=== PATIENT | female | born 1950 | race Caucasian/White ===

== ENCOUNTER 2017-05-27 04:29 | Emergency (ER) | payer OTHER, BC ==
[~2017-05-27] VITALS: Ht 154.9 cm; Wt 71.8 kg
[2017-05-27 04:31] VITALS: Ht 154.9 cm; Wt 71.8 kg
[2017-05-27 05:16] VITALS: TEMP 98
--- NOTE | 2017-05-27 06:13 | RADRPT ---
PROCEDURE: CT ABDOMEN/PELVIS WITHOUT CONTRAST CLINICAL INDICATION: 66-year-old female with abdominal pain. TECHNIQUE: The study was performed utilizing a GE [employer] VCT 64-slice CT scanner. Direct axia l sections were obtained through the abdomen and pelvis without the use of intravenous contrast mate rial. Sagittal and coronal reformations were obtained. One or more of the following dose reduction t echniques were utilized: automated exposure control, adjustment of the mA and/or kV according to pat ient's size and/or the use of iterative reconstruction technique. DICOM images are available. The im ages were reviewed on a PACS workstation. CTD/vol = 10.8 mGy; Total Exam DLP = 622.3 mGy-cm. COMPARISON: None. FINDINGS: Cardiomegaly is present. There is a partially visualized calcified granuloma within the lingula mckayla uring 2 x 2 mm. There is a calcified granuloma within the right lung base measuring 3 x 3 mm. There is a calcified subpleural granuloma within the right lung base measuring 2 x 2 mm in axial image 3-2 5. There is a calcified granuloma within the left lung base measuring 3 x 3 mm in axial image 3-39. There is mild scarring within the right middle lobe. There is no evidence for significant pleural ef fusion. The liver has a normal size and contour without focal areas of abnormal density. No intrahe patic nor extrahepatic biliary ductal dilatation is seen. The gallbladder demonstrates no wall thick ening nor pericholecystic fluid. No biliary stones are evident. The pancreas is without areas of abn ormal attenuation. The spleen is identified and has a normal size without abnormal density. The adr enal glands are unremarkable. There is a right mid renal cyst measuring approximately 12 x 13 x 12 mm. The left kidney is without abnormal density, calculi or obstruction. No hydroureteronephrosis no r nephroureterolithiasis is evident. The urinary bladder is distended with urine. There is retained stool predominantly within the ascending and transverse colon without obstruction. Small diverticula seen within the sigmoid colon without surrounding inflammatory changes. The appendix is diminutive and is without abnormal thickening or surrounding inflammatory reaction. The uterus is not visualiz ed consistent with prior hysterectomy. Phleboliths are present within the pelvis. There are small bi lateral inguinal hernias containing fat. The aortoiliac vessels are mildly calcified but without ane urysmal dilatation. Mild degenerative changes are present throughout the spine. IMPRESSION: 1. Retained stool within the proximal colon without obstruction. 2. Sigmoid diverticulosis. 3. Status post hysterectomy. 4. Small bilateral inguinal hernias containing fat. 5. Cardiomegaly. 6. Small bilateral granulomas. 7. Right renal cysts. 8. Vascular calcifications. 9. Degenerative changes within the spine. .Des Fraser MD, MD Date Time Electronically viewed and signed by .Des Fraser MD, MD on 05/27/2017 06:13 .Lelo
[2017-05-27] MEDS ORDERED: ONDANSETRON 4 MG INJ IV STA (06:22)
[2017-05-27] MEDS ORDERED: HYDROmorphONE 1 MG/ML SYG IV STA (06:22)
[2017-05-27 06:28] LABS: ABNORMAL IP MESSAGE 1; BASOPHIL # 0.2 10^3/ul (0.0-0.1); BASOPHILS % 1.7 % (0.0-2.0); EOSINOPHILS # 2.3 10^3/ul (0.0-0.5); EOSINOPHILS % 21.8 % (0.0-7.0); HEMATOCRIT 37.7 % (37.0-47.0); HEMOGLOBIN 12.5 g/dl (12.0-16.0); LYMPHOCYTES # 2.6 10^3/ul (0.8-2.9); LYMPHOCYTES % 24.7 % (15.0-51.0); MEAN CORPUSCULAR HEMOGLOBIN 28.5 pg (29.0-33.0); MEAN CORPUSCULAR HGB CONC 33.2 g/dl (32.0-37.0); MEAN CORPUSCULAR VOLUME 86.1 fl (82.0-101.0); MEAN PLATELET VOLUME 12.1 fl (7.4-10.4); MONOCYTES % 9.2 % (0.0-11.0); NEUTROPHIL # 4.5 10^3/ul (1.6-7.5); NEUTROPHILS % 42.2 % (39.0-77.0); PLATELET COUNT 201 10^3/UL (140-415); RED BLOOD COUNT 4.38 10^6/ul (4.20-5.40); RED CELL DISTRIBUTION WIDTH 13.3 % (11.5-14.5); WHITE BLOOD COUNT 10.6 10^3/ul (4.8-10.8)
[2017-05-27 06:38] LABS: POSITIVE DIFF @See below
[2017-05-27 06:56] LABS: ADD UMIC NO; UR ASCORBIC ACID NEGATIVE (NEGATIVE); UR BILIRUBIN (Dip) NEGATIVE (NEGATIVE); UR BLOOD (Dip) NEGATIVE (NEGATIVE); UR CLARITY CLEAR (CLEAR); UR COLOR COLORLESS (YELLOW); UR GLUCOSE (Dip) NEGATIVE (NEGATIVE); UR KETONES (Dip) NEGATIVE (NEGATIVE); UR LEUKOCYTE ESTERASE (Dip) NEGATIVE Leu/ul (NEGATIVE); UR NITRITE (Dip) NEGATIVE (NEGATIVE); UR SPECIFIC GRAVITY (Dip) 1.004 (1.003-1.030); UR TOTAL PROTEIN (Dip) NEGATIVE (NEGATIVE); UR UROBILINOGEN (Dip) NEGATIVE (NEGATIVE)
[2017-05-27 07:02] LABS: ALBUMIN 4.2 g/dl (3.3-4.9); ALBUMIN/GLOBULIN RATIO 1.35; BILIRUBIN,INDIRECT 0.2 mg/dl (0-1.1); BILIRUBIN,TOTAL 0.2 mg/dl (0.2-1.3); CALCIUM 9.3 mg/dl (8.4-10.2); CREATININE 0.56 mg/dl (0.44-1.00); POTASSIUM 4.2 mmol/L (3.5-5.1); TOTAL PROTEIN 7.3 g/dl (6.1-8.1)
[2017-05-27] MEDS ORDERED: HYDR-906 PO (07:38)
[2017-05-27] MEDS ORDERED: ONDA4TAB14 PO (07:38)
--- NOTE | 2017-05-27 07:50 | ERD ---
ER Documentation Chief Complaint Chief Complaint L flank pain radiating to l abd HPI Patient is a 66-year-old female with hypertension and diabetes who presents with flank pain. The patient has bilateral flank pain that started 1 week ago. The pain comes and goes. She has no fevers and no urinary symptoms. She tried naproxen for her pain without much help. ROS All systems reviewed and are negative except as per history of present illness. Medications Home Meds Active Scripts Ondansetron (Ondansetron Odt) 4 Mg Tab.rapdis, 4 MG PO Q6H Y for NAUSEA AND/OR VOMITING, #30 TAB Prov:CHICO SOUSA MD 05/27/17 Hydrocodone/Acetaminophen (R[place]ledge 5-325 Tablet) 1 Each Tablet, 1 TAB PO Q6H Y for PAIN, #12 TAB Prov:CHICO SOUSA MD 05/27/17 Allergies Allergies: Coded Allergies: No Known Allergy (Unverified , 05/27/17) PMhx/Soc History of Surgery: Yes (HYSTERECTOMY) Anesthesia Reaction: No Hx Neurological Disorder: No Hx Respiratory Disorders: No Hx Cardiac Disorders: Yes (CARDIOMEGALY, HTN, HIGH CHOLESTEROL) Hx Psychiatric Problems: No Hx Miscellaneous Medical Probl: Yes (DM) Hx Alcohol Use: No Hx Substance Use: No Hx Tobacco Use: No Smoking Status: Former smoker FmHx Family History: No diabetes Physical Exam Vitals Vital Signs Date Time Temp Pulse Resp B/P Pulse Ox O2 Delivery O2 Flow Rate FiO2 05/27/17 05:16 98.0 66 18 176/76 98 Room Air 05/27/17 04:31 98.9 71 20 195/85 98 Physical Exam Const: Moderate distress secondary to pain Head: Atraumatic Eyes: Normal Conjunctiva ENT: Normal External Ears, Nose and Mouth. Neck: Full range of motion..~ No meningismus. Resp: Clear to auscultation bilaterally Cardio: Regular rate and rhythm, no murmurs Abd: Soft, left lower quadrant tenderness to palpation without rebound or guarding Skin: No petechiae or rashes Back: Bilateral lower back pain without midline tenderness Ext: No cyanosis, or edema Neur: Awake and alert Psych: Normal Mood and Affect Result Diagram: 05/27/17 0545 05/27/17 0545 Results 24 hrs Laboratory Tests Test 05/27/17 05:45 05/27/17 06:35 White Blood Count 10.610^3/ul Red Blood Count 4.3810^6/ul Hemoglobin 12.5g/dl Hematocrit 37.7% Mean Corpuscular Volume 86.1fl Mean Corpuscular Hemoglobin 28.5pg Mean Corpuscular Hemoglobin Concent 33.2g/dl Red Cell Distribution Width 13.3% Platelet Count 92575^3/UL Mean Platelet Volume 12.1fl Neutrophils % 42.2% Lymphocytes % 24.7% Monocytes % 9.2% Eosinophils % 21.8% Basophils % 1.7% Nucleated Red Blood Cells % 0.0/100WBC Neutrophils # 4.510^3/ul Lymphocytes # 2.610^3/ul Monocytes # 1.010^3/ul Eosinophils # 2.310^3/ul Basophils # 0.210^3/ul Nucleated Red Blood Cells # 0.010^3/ul Sodium Level 143mmol/L Potassium Level 4.2mmol/L Chloride Level 105mmol/L Carbon Dioxide Level 27mmol/L Anion Gap 15 Blood Urea Nitrogen 15mg/dl Creatinine 0.56mg/dl Glucose Level 159mg/dl Calcium Level 9.3mg/dl Total Bilirubin 0.2mg/dl Direct Bilirubin 0.00mg/dl Indirect Bilirubin 0.2mg/dl Aspartate Amino Transf (AST/SGOT) 51IU/L Alanine Aminotransferase (ALT/SGPT) 37IU/L Alkaline Phosphatase 120IU/L Total Protein 7.3g/dl Albumin 4.2g/dl Globulin 3.10g/dl Albumin/Globulin Ratio 1.35 Lipase 111U/L Urine Color COLORLESS Urine Clarity CLEAR Urine pH 7.0 Urine Specific [place] 1.004 Urine Ketones NEGATIVEmg/dL Urine Nitrite NEGATIVEmg/dL Urine Bilirubin NEGATIVEmg/dL Urine Urobilinogen NEGATIVEmg/dL Urine Leukocyte Esterase NEGATIVELeu/ul Urine Hemoglobin NEGATIVEmg/dL Urine Glucose NEGATIVEmg/dL Urine Total Protein NEGATIVEmg/dl Current Medications Medications (Trade) Dose Ordered Sig/Satish Route PRN Reason Start Time Stop Time Status Last Admin Dose Admin Hydromorphone HCl (Dilaudid) 1 mg ONCE STAT IV 05/27/17 06:22 05/27/17 06:24 DC 05/27/17 06:46 Ondansetron HCl (Zofran Inj) 4 mg ONCE STAT IV 05/27/17 06:22 05/27/17 06:24 DC 05/27/17 06:46 Procedures/MDM CT abdomen pelvis shows no surgical process per radiology. Patient is a 66-year-old female with diabetes who presents with bilateral flank pain. Laboratory studies are basically normal. The patient has a CT scan which shows no surgical process. At this point I doubt kidney stone, pyelonephritis, appendicitis, cholecystitis, or bowel obstruction. I believe outpatient management is appropriate. The patient will be discharged home with a prescription for Rutledge and Zofran but will need close follow-up with the primary doctor tomorrow for reevaluation. The patient can return sooner for any worsening symptoms. Departure Diagnosis: Primary Impression: Flank pain Condition: Fair Patient Instructions: Flank Pain, Uncertain Cause Referrals: COLIN BOOKER MD (PCP) Additional Instructions: Visite a toney gricelda dinh para un EXAMEN.Regrese a estas instalaciones si no se mejora emma esperbamos o emma le dijimos. CHICO SOUSA MD May 27, 2017 07:50
[2017-05-27 07:53] VITALS: BP 161/65; PULSE 65; RESP 16
== END 2017-05-27 07:54 | disposition home or self-care (01) ==
LOC: E/R 04:29
DX: R10.32 Left lower quadrant pain (principal); I10 Essential (primary) hypertension; E11.9 Type 2 diabetes mellitus without complications; Z87.891 Personal history of nicotine dependence
CPT/HCPCS: 36415; 74176; 80053; 81003; 83690; 85025; 87086; 96374; 96375; 99285; J1170; J2405

== ENCOUNTER 2017-06-30 06:06 | Day surgery (SDC) | END 2017-06-30 11:54 | disposition home or self-care (01) ==

== ENCOUNTER 2018-11-20 09:52 | Inpatient (IN) | payer OTHER ==
[~2018-11-20] VITALS: Ht 154.9 cm; Wt 69.4 kg
[~2018-11-20 09:52] MED LIST: AMLO-147 PO; ASPI81TA52 PO; CARV12.579 PO; CARV6.2579 PO; CHOL500010 PO; HYDR50TA3 PO; LEVO75TA65 PO; METF100010 PO; SITA100T11 PO; VALS160T20 PO
[2018-11-20] MEDS ORDERED: ONDANSETRON 4 MG INJ IV STA (10:44)
[2018-11-20] MEDS ORDERED: morphine 4 MG/ML VIAL IV STA (10:44)
[2018-11-20] MEDS ORDERED: LABETALOL HCL 20MG INJ IV ONE (11:00)
[2018-11-20] MEDS ORDERED: ASPI81TA52 PO (11:36)
[2018-11-20] MEDS ORDERED: OMEP40CA6 PO (11:37)
[2018-11-20] MEDS ORDERED: LORA10TA3 PO (11:37)
[2018-11-20] MEDS ORDERED: LEVO50TA71 PO (11:37)
[2018-11-20] MEDS ORDERED: ATOR40TA68 PO (11:37)
[2018-11-20] MEDS ORDERED: SITA1TAB5 PO (11:38)
[2018-11-20] MEDS ORDERED: NAPR-688 PO (11:38)
--- NOTE | 2018-11-20 14:07 | ERD ---
ER Documentation Chief Complaint Chief Complaint ME FAMILY PT HAS NOT BEEN ACTING HERSELF HPI This is a 68-year-old Kinyar[place]-speaking female that presented to the emergency department with changes in her mental status. Family indicated that the patient has appeared more confused and unsteady in her gait for the past 48 hours. The patient has been complaining of a headache which she states is localized to the left side of her head. She states this is not the worst headache of her life. There is been no trauma according to nursing staff. The patient has been more tearful. She has not complained of chest pain. She denies any changes in vision. She is no shortness of breath at rest or exertion. She has been compliant with her medications which includes [id number]-azyeytyng diabetes and hypertensive medication. She said no fevers no shaking or chills. No recent hospitalizations or travel. ROS All systems reviewed and are negative except as per history of present illness. Medications Home Meds Reported Medications Naproxen* (Naproxen*) 500 Mg Tablet, 500 MG PO BID PRN for PAIN AND/OR INFLAMMATION, TAB 11/20/18 Sitagliptin Phos/Metformin HCl (Janumet 50-1,000 mg Tablet) 1 Each Tablet, 1 EACH PO BID, TAB 11/20/18 Atorvastatin* (Atorvastatin*) 40 Mg Tablet, 40 MG PO QHS, #30 TAB 11/20/18 Loratadine* (Loratadine*) 10 Mg Tablet, 10 MG PO DAILY, #30 TAB 11/20/18 Omeprazole* (Omeprazole*) 40 Mg Capsule.dr, 40 MG PO DAILY, #30 CAP 11/20/18 Levothyroxine Sodium* (Levoxyl*) 50 Mcg Tablet, 50 MCG PO BEFORE BREAKFAST, #30 TAB 11/20/18 Aspirin (Low Dose Aspirin) 81 Mg Tablet.dr, 81 MG PO DAILY, #30 TAB 11/20/18 Discontinued Reported Medications Sitagliptin* (Januvia*) 100 Mg Tablet, 100 MG PO DAILY, #30 TAB 06/30/17 Metformin Hcl* (Metformin Hcl*) 1,000 Mg Tablet, 1000 MG PO WITH BREAKFAST DINNE, #30 TAB 06/30/17 Levothyroxine Sodium* (Levoxyl*) 75 Mcg Tablet, 75 MCG PO BEFORE BREAKFAST, #30 TAB 06/30/17 Aspirin (Low Dose Aspirin) 81 Mg Tablet.dr, 81 MG PO DAILY, #30 TAB 06/30/17 Amlodipine Besylate* (Amlodipine Besylate*) 10 Mg Tablet, 10 MG PO DAILY, #30 TAB 06/30/17 Carvedilol* (Carvedilol*) 12.5 Mg Tablet, 12.5 MG PO BID, #60 TAB 06/30/17 Cholecalciferol (Vitamin D3) 5,000 Unit Tablet, 5000 UNIT PO DAILY, TAB 06/30/17 Sitagliptin* (Januvia*) 100 Mg Tablet, 100 MG PO DAILY, #30 TAB 07/30/16 Metformin Hcl* (Metformin Hcl*) 1,000 Mg Tablet, 1000 MG PO WITH BREAKFAST DINNE, #30 TAB 07/30/16 Carvedilol* (Carvedilol*) 6.25 Mg Tablet, 6.25 MG PO BID, #60 TAB 07/30/16 Hydrochlorothiazide* (Hydrochlorothiazide*) 50 Mg Tab, 50 MG PO DAILY, #30 TAB 07/30/16 Valsartan* (Diovan*) 160 Mg Tablet, 160 MG PO BID, TAB 07/30/16 Amlodipine Besylate* (Amlodipine Besylate*) 10 Mg Tablet, 10 MG PO DAILY, #30 TAB 07/30/16 Allergies Allergies: Coded Allergies: No Known Allergy (Unverified , 11/20/18) PMhx/Soc History of Surgery: No Anesthesia Reaction: No Hx Neurological Disorder: No Hx Respiratory Disorders: No Hx Cardiac Disorders: No Hx Psychiatric Problems: No Hx Miscellaneous Medical Probl: No Hx Alcohol Use: No Hx Substance Use: No Hx Tobacco Use: No Smoking Status: Never smoker Physical Exam Vitals Vital Signs Date Temp Pulse Resp B/P (MAP) Pulse Ox O2 O2 Flow FiO2 Time Delivery Rate 11/20/18 176/78 11:45 (110) 11/20/18 98.1 76 18 218/98 99 09:56 (138) Physical Exam Constitutional:Well-developed. Well-nourished. HEENT:Normocephalic. Atraumatic.Pupils were equal round reactive to light. Moist mucous membranes.No tonsillar exudates. Funduscopy exam shows sharp optic disks and venous pulsations are present. Neck: No nuchal rigidity. No lymphadenopathy. No posterior cervical spine tenderness or step-offs. Respiratory: Not using accessory muscles of respiration.Lungs were clear to auscultation bilaterally. No rhonchi. No rales. No wheezing. Cardiovascular: Regular rate regular rhythm.No murmurs. No rubs were appreciated.S1, S2 normal. Distal pulses are palpable 2+ bilaterally. GI: Abdomen was soft. Nontender. Non Distended. No pulsatile abdominal masses or bruits. No rebound. No guarding. Bowel sounds were present and normal. Muscle skeletal: Full range of motion of both the upper and lower extremities bilaterally.Normal muscle tone.No assymetrical calf tenderness or swelling. Skin: No petechia, no purpura. No lesions on the palms or the soles of the feet. No maculopapular rash. NEURO: Patient was alert, awake, orientated x3.No facial droop. Gait observed and patient ambulates with a slow steady gait.Speech had regular rate and rhythm. No focal neurological deficits. Result Diagram: 11/20/18 1025 11/20/18 1025 Results 24 hrs Laboratory Tests Test 11/20/18 10:25 White Blood Count 10.8 10^3/ul Red Blood Count 5.32 10^6/ul Hemoglobin 14.4 g/dl Hematocrit 45.2 % Mean Corpuscular Volume 85.0 fl Mean Corpuscular Hemoglobin 27.1 pg Mean Corpuscular Hemoglobin Concent 31.9 g/dl Red Cell Distribution Width 13.1 % Platelet Count 247 10^3/UL Mean Platelet Volume 12.1 fl Immature Granulocytes % 0.300 % Neutrophils % 48.8 % Lymphocytes % 23.5 % Monocytes % 7.7 % Eosinophils % 18.2 % Basophils % 1.5 % Nucleated Red Blood Cells % 0.0 /100WBC Immature Granulocytes # 0.030 10^3/ul Neutrophils # 5.3 10^3/ul Lymphocytes # 2.6 10^3/ul Monocytes # 0.8 10^3/ul Eosinophils # 2.0 10^3/ul Basophils # 0.2 10^3/ul Nucleated Red Blood Cells # 0.0 10^3/ul Prothrombin Time 13.8 Sec Prothrombin Time Ratio 1.1 INR International Normalized Ratio 1.05 Activated Partial Thromboplast Time 28.0 Sec Urine Color YELLOW Urine Clarity CLEAR Urine pH 6.0 Urine Specific [place] 1.011 Urine Ketones NEGATIVE mg/dL Urine Nitrite NEGATIVE mg/dL Urine Bilirubin NEGATIVE mg/dL Urine Urobilinogen NEGATIVE mg/dL Urine Leukocyte Esterase TRACE Tracy/ul Urine Microscopic RBC 0 /HPF Urine Microscopic WBC 1 /HPF Urine Squamous Epithelial Cells FEW /HPF Urine Hemoglobin NEGATIVE mg/dL Urine Glucose NEGATIVE mg/dL Urine Total Protein NEGATIVE mg/dl Sodium Level 143 mmol/L Potassium Level 4.2 mmol/L Chloride Level 104 mmol/L Carbon Dioxide Level 28 mmol/L Anion Gap 11 Blood Urea Nitrogen 14 mg/dl Creatinine 0.48 mg/dl Est Glomerular Filtrat Rate mL/min > 60 mL/min Glucose Level 181 mg/dl Calcium Level 9.4 mg/dl Total Bilirubin 0.6 mg/dl Direct Bilirubin 0.00 mg/dl Indirect Bilirubin 0.6 mg/dl Aspartate Amino Transf (AST/SGOT) 36 IU/L Alanine Aminotransferase (ALT/SGPT) 26 IU/L Alkaline Phosphatase 105 IU/L Troponin I < 0.012 ng/ml Total Protein 8.0 g/dl Albumin 4.6 g/dl Globulin 3.40 g/dl Albumin/Globulin Ratio 1.35 Amylase Level 68 U/L Lipase 83 U/L Current Medications Medications Dose Sig/Satish Start Time Status Last (Trade) Ordered Route PRN Stop Time Admin Dose Reason Admin Labetalol 10 mg ONCE ONCE 11/20/18 DC 11/20/18 HCl IV 11:00 11:22 (Labetalol) 11/20/18 11:01 Ondansetron 4 mg ONCE STAT 11/20/18 DC 11/20/18 HCl (Zofran IV 10:44 11:21 Inj) 11/20/18 10:48 Morphine 4 mg ONCE STAT 11/20/18 DC 11/20/18 Sulfate IV 10:44 11:21 (morphine) 11/20/18 10:48 Procedures/MDM The patient presented to the emergency department with an acute and persistent change in their mental status. The differential diagnosis is diverse however reversible causes such as hypoglycemia, opiate overdose, thiamine deficiency were immediately considered. The patient was placed on a mass spectrometry manager, continuous pulse oximetry and IV access was established. The patients airway was secure however hypoxic events such as anemia, shock, or severe pulmonary disease were all considered as etiologies in this patients presentation. Circulation assessed with good cap refill and did not require fluids or pressure support. Finger stick for rapid glucose determined to be normal. 12 Lead EKG tracing ordered and reviewed by myself showed: Normal sinus rhythm of 68 bpm and no arrhythmia. ME interval normal. QRS duration normal. No ST segment elevation. Left ventricular hypertrophy No ST segment depression. No changes consistent with acute ischemia. This patient also presented to the emergency department with severely elevated blood pressure. My differential diagnosis included but was not limited to conditions that could end-organ damage such as acute coronary syndrome, acute pulmonary edema, aortic dissection, subarachnoid hemorrhage, intracerebral hemorrhage, cerebral infarction, withdrawal syndromes from beta blockers, or states of catecholamine excess such as pheochromocytoma or drug intoxication. The patient had uncontrolled hypertensive with end-organ damage to suggest hypertensive emergency. The treatment goal was immediate reduction of the mean arterial blood pressure. This was done in a controlled, graded manor, using improvement of the patient's condition as a guide. The patient's blood pressure reduction did not exceed more then a 20-25 percent reduction within the first 30 to 60 minutes. The patient was put on a mass spectrometry manager, continuous pulse oximetry, and IV access was established by nursing staff. The antihypertensive agent used was IV labetalol As obtained a CT scan the patient said there is no additional hemorrhage mass- effect or midline shift. Given the patient's symptoms and that her family stated that she had been more confused over the past several days I did feel that the patient required admission for monitoring of her blood pressure and further evaluation with a possible MRI. The patient had no strokelike symptoms on my physical examination. She will be admitted to the hospitalist Dr. Pedersen. Critical Care: Time: 75 minutes Treatments/Evaluations: Close monitoring and treatment of unstable vital signs, cardiorespiratory, and neurologic status, while maintaining tight balance of fluid, respiratory, and cardiac interventions. Time does not include performing any of the above billable procedures. Departure Diagnosis: Primary Impression: Hypertensive emergency Additional Impression: Headache Headache type: unspecified Headache chronicity pattern: unspecified pattern Intractability: not intractable Qualified Codes: R51 - Headache Condition: Serious TAISHA DUMONT MD November 20, 2018 14:07
[2018-11-20] MEDS ORDERED: ACETAMINOPHEN 325 MG TAB PO PRN (14:30)
[2018-11-20] MEDS ORDERED: ONDANSETRON 4 MG INJ IV PRN ×2 (14:30→15:30)
--- NOTE | 2018-11-20 15:29 | HP ---
Date/Time of Note Date/Time of Note DATE: 11/20/18 TIME: 15:26 Assessment/Plan VTE Prophylaxis Pharmacological prophylaxis: LMWH Lines/Catheters IV [facility]from [facility]): Saline Lock Assessment/Plan Hospital Course 68-year-old female with comorbidities including stroke, hypertension, dyslipidemia, diabetes mellitus, and hypothyroidism who was brought to the emergency room by family members because of new onset confusion, who will be admitted to inpatient setting for further treatment and evaluation. 1. Acute encephalopathy. -Etiology unclear. -Brain CT negative for any acute findings. -Obtain brain MRI to evaluate for any underlying stroke. -Obtain PT and ST evaluation. -Start the patient on aspirin and statins. -Permissive hypertension. 2. Hypertensive emergency. -Permissive hypertension until stroke is ruled out. -PRN antihypertensives for systolic blood pressure more than 220 mmHg. 3. Cephalgia. -Most probably secondary to underlying hypertensive emergency. -Brain CT negative for any acute findings. 4. Diabetes mellitus type 2. -Hemoglobin A1c will be obtained to evaluate blood glucose control over the past few weeks. -Start the patient on sliding scale insulin along with pre-meal insulin and basal insulin. 5. Hypothyroidism. -Resume Synthroid. Plan: The patient will be admitted to inpatient telemetry floor. The patient will be started on a low-cholesterol diet. The patient will be started on DVT prophylaxis. The patient will remain a full code. Activities will be with assist. The rest of the patient's management will be based on the clinical course and the results of diagnostic studies. Based on the patient's clinical presentation, she most probably requires at least 2 midnights' stay for further management and evaluation of her clinical presentation. The patient was seen in collaboration with Dr. Pedersen. Result Diagram: 11/20/18 1025 11/20/18 1025 Results 24hrs Laboratory Tests Test 11/20/18 10:25 White Blood Count 10.8 Red Blood Count 5.32 # Hemoglobin 14.4 Hematocrit 45.2 Mean Corpuscular Volume 85.0 Mean Corpuscular Hemoglobin 27.1 L Mean Corpuscular Hemoglobin Concent 31.9 L Red Cell Distribution Width 13.1 Platelet Count 247 # Mean Platelet Volume 12.1 H Immature Granulocytes % 0.300 Neutrophils % 48.8 Lymphocytes % 23.5 Monocytes % 7.7 Eosinophils % 18.2 H Basophils % 1.5 Nucleated Red Blood Cells % 0.0 Immature Granulocytes # 0.030 Neutrophils # 5.3 Lymphocytes # 2.6 Monocytes # 0.8 Eosinophils # 2.0 H Basophils # 0.2 H Nucleated Red Blood Cells # 0.0 Prothrombin Time 13.8 Prothrombin Time Ratio 1.1 INR International Normalized Ratio 1.05 Activated Partial Thromboplast Time 28.0 Urine Color YELLOW Urine Clarity CLEAR Urine pH 6.0 Urine Specific [place] 1.011 Urine Ketones NEGATIVE Urine Nitrite NEGATIVE Urine Bilirubin NEGATIVE Urine Urobilinogen NEGATIVE Urine Leukocyte Esterase TRACE A Urine Microscopic RBC 0 Urine Microscopic WBC 1 Urine Squamous Epithelial Cells FEW Urine Hemoglobin NEGATIVE Urine Glucose NEGATIVE Urine Total Protein NEGATIVE Sodium Level 143 Potassium Level 4.2 Chloride Level 104 Carbon Dioxide Level 28 Anion Gap 11 Blood Urea Nitrogen 14 Creatinine 0.48 Est Glomerular Filtrat Rate mL/min > 60 Glucose Level 181 Calcium Level 9.4 Total Bilirubin 0.6 Direct Bilirubin 0.00 Indirect Bilirubin 0.6 Aspartate Amino Transf (AST/SGOT) 36 Alanine Aminotransferase (ALT/SGPT) 26 Alkaline Phosphatase 105 Troponin I < 0.012 Total Protein 8.0 Albumin 4.6 Globulin 3.40 H Albumin/Globulin Ratio 1.35 Amylase Level 68 Lipase 83 HPI/ROS Admit Date/Time Admit Date/Time Hx of Present Illness This is a 68-year-old female with past medical history of stroke, hypertension, diabetes mellitus type 2, dyslipidemia, and hypothyroidism. Patient came to the emergency room with the changes in mental status. The patient's family indicated that the patient has been more confused and unsteady in her gait for the past 48 hours. The patient has been complaining of a headache as well as vertigo. The patient denied any chest pain. The patient was very tearful. The patient denied any changes in vision. She denied any dyspnea. In the emergency room, the patient's lab works were essentially negative. The patient's EKG was showing normal sinus rhythm. The patient underwent a CT scan of the brain that was negative for any acute findings. However, this showed evidence of chronic right patterson radiata/basal ganglia lacunar infarction. The patient was noted to have a blood pressure of 218/98. ROS Constitutional: disoriented PMH/Family/Social Past Medical History 1. Stroke. 2. HTN. 3. DM type 2. 4. Dyslipidemia. 5. Hypothyroidism. Medications Current Medications Ondansetron HCl (Zofran Inj) 4 mg ER BRIDGE PRN IV NAUSEA/VOMITING; Start 11/20/18 at 14:30; Stop 11/21/18 at 14:29 Acetaminophen (Tylenol Tab) 650 mg ER BRIDGE PRN PO .MILD PAIN 1-3 OR TEMP; Start 11/20/18 at 14:30; Stop 11/21/18 at 14:29 Coded Allergies: No Known Allergy (Unverified , 11/20/18) Past Surgical History Past Surgical Hx: other (Total vaginal hysterectomy, Cataract surgery.) Social History The patient lives at home with family. Alcohol Use: none Smoking Status: Never smoker Drug Use: none Exam/Review of Systems Vital Signs Vitals Vital Signs Date Temp Pulse Resp B/P (MAP) Pulse Ox O2 O2 Flow FiO2 Time Delivery Rate 11/20/18 97.9 65 18 174/69 95 Room Air 13:59 (104) Exam Exam General: Adequately build 68 year-old female lying in bed in no apparent distress. HEENT: Normocephalic, atraumatic. Eyes: Anicteric sclerae, conjunctivae clear. ENT: Nasal septum midline, oral mucosa moist. Neck supple, no JVD noticed. Respiratory: Bilaterally clear breath sounds. No use of accessory muscles of respiration. No adventitious breath sounds. Cardiovascular: S1, S2 heard. Regular rate and rhythm. Abdomen: Soft, nontender, and nondistended. Bowel sounds positive in all 4 quadrants. Genitourinary: Deferred. Extremities: No cyanosis, no clubbing, no edema. Peripheral pulses palpable. Neurologic: The patient is awake and alert. Moves all 4 extremities. Oriented to self. Skin: Normal skin turgor. No skin rashes. Affect: Sad. Additional Comments Brain CT IMPRESSION: 1. No acute intracranial hemorrhage or extra-axial fluid collection. 2. Minimal generalized cerebral volume loss. 3. Chronic right patterson radiata/basal ganglia lacunar infarction. CXR IMPRESSION: No acute cardiopulmonary disease. Cardiomegaly. YISEL ASHBY NP November 20, 2018 15:29
[2018-11-20] MEDS ORDERED: NACL 0.9% 3 ML SYG IV SCH (15:30)
[2018-11-20] MEDS ORDERED: GLUCOSE GEL 15 GRAM TUBE BUCCAL PRN (16:00)
[2018-11-20] MEDS ORDERED: GLUCOSE GEL 15 GRAM TUBE PO PRN ×2 (16:00)
[2018-11-20] MEDS ORDERED: GLUCAGON 1 MG INJ IM PRN (16:00)
[2018-11-20] MEDS ORDERED: DEXTROSE 50% 50 ML SYRINGE IV PRN ×2 (16:00)
[2018-11-20] MEDS: hydrALAzine 20 MG INJ IV PRN ×2 (17:00→22:31)
[2018-11-20 17:45] VITALS: Ht 154.9 cm; Wt 69.4 kg
[2018-11-20 17:54] VITALS: BP 195/79; PULSE 86; RESP 20
[2018-11-20 18:30] VITALS: BP 146/80; PULSE 84
[2018-11-20] MEDS: INSULIN ASPART [NOVOLOG] 3 ML PEN SC SCH ×3 (18:47→20:06)
[2018-11-20 19:29] VITALS: BP 177/76; PULSE 86; RESP 17
[2018-11-20] MEDS: INSULIN GLARGINE [LANTus] (100 UNITS/ML) SYG SC SCH (20:05)
[2018-11-20] MEDS: ATORVASTATIN 40 MG TAB PO SCH (20:34)
[2018-11-20] MEDS: LOSARTAN 25 MG TAB PO SCH (20:34)
[2018-11-20 20:35] VITALS: PULSE 91
[2018-11-21] VITALS (14 sets, daily range): BP systolic 140–197; BP diastolic 63–84; PULSE 81–95; RESP 17–20
[2018-11-21] MEDS: LORATADINE 10 MG TAB PO SCH (08:07)
[2018-11-21] MEDS: LEVOTHYROXINE 50 MCG TAB PO SCH (08:07)
[2018-11-21] MEDS: LOSARTAN 25 MG TAB PO SCH (08:08)
[2018-11-21] MEDS: hydrALAzine 20 MG INJ IV PRN ×2 (08:08→16:51)
[2018-11-21] MEDS: ASPIRIN 81 MG TAB PO SCH (08:08)
[2018-11-21] MEDS: ENOXAPARIN 40 MG/0.4 ML SYG SC SCH (08:15)
[2018-11-21] MEDS: INSULIN ASPART [NOVOLOG] 3 ML PEN SC SCH ×7 (08:15→20:03)
[2018-11-21] MEDS ORDERED: ACETAMINOPHEN 500 MG TAB PO PRN (11:00)
--- NOTE | 2018-11-21 11:07 | PN ---
Date/Time of Note Date/Time of Note DATE: 11/21/18 TIME: 10:58 Assessment/Plan VTE Prophylaxis Risk score (from Ns)>0 risk: 3 SCD applied (from Ns): No SCD contraindicated: other Pharmacological prophylaxis: LMWH Lines/Catheters IV [facility]from [facility] Saline Lock Urinary Cath still in place: No Assessment/Plan Hospital Course SUBJECTIVE: The patient is complaining of left frontal headache. Blood pressure well controlled. Family at the bedside. Had a low-grade fever in the morning. OBJECTIVE: Physical Exam General: Adequately build 68 year-old female lying in bed in no apparent distress. HEENT: Normocephalic, atraumatic. Eyes: Anicteric sclerae, conjunctivae clear. ENT: Nasal septum midline, oral mucosa moist. Neck supple, no JVD noticed. Respiratory: Bilaterally clear breath sounds. No use of accessory muscles of respiration. No adventitious breath sounds. Cardiovascular: S1, S2 heard. Regular rate and rhythm. Abdomen: Soft, nontender, and nondistended. Bowel sounds positive in all 4 quadrants. Genitourinary: Deferred. Extremities: No cyanosis, no clubbing, no edema. Peripheral pulses palpable. Neurologic: The patient is awake and alert. Moves all 4 extremities. Oriented x4. Skin: Normal skin turgor. No skin rashes. Labs & Vitals per chart ASSESSMENT & PLAN 68-year-old female with comorbidities including stroke, hypertension, dyslipidemia, diabetes mellitus, and hypothyroidism who was brought to the emergency room by family members because of new onset confusion, who was admitted to inpatient setting for further treatment and evaluation. 1. Acute encephalopathy. -Etiology unclear. -Brain CT negative for any acute findings. -Brain MRI negative for any acute stroke. -Obtain PT and ST evaluation. -Continue the patient on aspirin and statins. 2. Severe focal mid basilar artery stenosis: mild to moderate right cavernous carotid artery stenosis; mild right supraclinoid carotid artery stenosis. -Continue aspirin and statins. -Neurology evaluation. 3. Hypertensive emergency. -Blood pressure better controlled. -Continue antihypertensives. 4. Cephalgia. -Most probably secondary to underlying hypertensive emergency. -Continue pain control. 5. Diabetes mellitus type 2. -Hemoglobin A1c. -Continue the patient on sliding scale insulin along with pre-meal insulin and basal insulin. 6. Hypothyroidism. -Continue Synthroid. 7. Leukocytosis. -Pancultures ordered. 8. Fluids, electrolytes, and nutrition. -Carbohydrate controlled diet. 9. DVT prophylaxis. -Subcutaneous Lovenox 10. Plan. -Continue blood pressure control. -Continue aspirin and statins. -Await physical therapy evaluation. -Await neurology evaluation. The plan of care was explained to the patient's family, who was at the bedside. The patient was seen in collaboration with Dr. Pedersen. Result Diagram: 11/21/18 0528 11/21/18 0528 Results 24hrs Laboratory Tests Test 11/20/18 18:37 11/20/18 19:48 11/21/18 05:28 11/21/18 08:06 Bedside Glucose 253 H 225 H 226 H White Blood Count 14.8 #H Red Blood Count 5.01 Hemoglobin 13.7 Hematocrit 43.1 Mean Corpuscular 86.0 Volume Mean Corpuscular 27.3 L Hemoglobin Mean Corpuscular 31.8 L Hemoglobin Concent Red Cell 13.4 Distribution Width Platelet Count 238 Mean Platelet Volume 12.3 H Immature 0.500 H Granulocytes % Neutrophils % 66.2 Lymphocytes % 13.7 L Monocytes % 5.5 Eosinophils % 13.2 H Basophils % 0.9 Nucleated Red Blood 0.0 Cells % Immature 0.070 H Granulocytes # Neutrophils # 9.8 H Lymphocytes # 2.0 Monocytes # 0.8 Eosinophils # 2.0 H Basophils # 0.1 Nucleated Red Blood 0.0 Cells # Sodium Level 141 Potassium Level 3.9 Chloride Level 104 Carbon Dioxide Level 30 Anion Gap 7 Blood Urea Nitrogen 16 Creatinine 0.50 Est Glomerular > 60 Filtrat Rate mL/min Glucose Level 211 Calcium Level 9.1 Phosphorus Level 3.3 Magnesium Level 2.0 Total Bilirubin 0.5 Direct Bilirubin 0.00 Indirect Bilirubin 0.5 Aspartate Amino 29 Transf (AST/SGOT) Alanine 26 Aminotransferase (AL T/SGPT) Alkaline Phosphatase 90 Total Protein 7.3 Albumin 4.2 Globulin 3.10 Albumin/Globulin 1.35 Ratio Triglycerides Level 115 Cholesterol Level 122 LDL Cholesterol, 47 Calculated HDL Cholesterol 52 Cholesterol/HDL 2.3 Ratio Exam/Review of Systems Exam Vitals Vital Signs Date Temp Pulse Resp B/P (MAP) Pulse Ox O2 O2 Flow FiO2 Time Delivery Rate 11/21/18 98.5 146/63 09:30 (90) 11/21/18 88 08:12 11/21/18 20 95 07:21 11/20/18 Room Air 17:34 11/20/18 2.0 15:52 Results Results 24hrs Laboratory Tests Test 11/20/18 18:37 11/20/18 19:48 11/21/18 05:28 11/21/18 08:06 Bedside Glucose 253 H 225 H 226 H White Blood Count 14.8 #H Red Blood Count 5.01 Hemoglobin 13.7 Hematocrit 43.1 Mean Corpuscular 86.0 Volume Mean Corpuscular 27.3 L Hemoglobin Mean Corpuscular 31.8 L Hemoglobin Concent Red Cell 13.4 Distribution Width Platelet Count 238 Mean Platelet Volume 12.3 H Immature 0.500 H Granulocytes % Neutrophils % 66.2 Lymphocytes % 13.7 L Monocytes % 5.5 Eosinophils % 13.2 H Basophils % 0.9 Nucleated Red Blood 0.0 Cells % Immature 0.070 H Granulocytes # Neutrophils # 9.8 H Lymphocytes # 2.0 Monocytes # 0.8 Eosinophils # 2.0 H Basophils # 0.1 Nucleated Red Blood 0.0 Cells # Sodium Level 141 Potassium Level 3.9 Chloride Level 104 Carbon Dioxide Level 30 Anion Gap 7 Blood Urea Nitrogen 16 Creatinine 0.50 Est Glomerular > 60 Filtrat Rate mL/min Glucose Level 211 Calcium Level 9.1 Phosphorus Level 3.3 Magnesium Level 2.0 Total Bilirubin 0.5 Direct Bilirubin 0.00 Indirect Bilirubin 0.5 Aspartate Amino 29 Transf (AST/SGOT) Alanine 26 Aminotransferase (AL T/SGPT) Alkaline Phosphatase 90 Total Protein 7.3 Albumin 4.2 Globulin 3.10 Albumin/Globulin 1.35 Ratio Triglycerides Level 115 Cholesterol Level 122 LDL Cholesterol, 47 Calculated HDL Cholesterol 52 Cholesterol/HDL 2.3 Ratio Medications Medication Current Medications IV Flush (NS 3 ml) 3 ml PER PROTOCOL IV ; Start 11/20/18 at 15:30 Ondansetron HCl (Zofran Inj) 4 mg Q6H PRN IV NAUSEA/VOMITING; Start 11/20/18 at 15:30 Aspirin (Aspirin) 81 mg DAILY PO Last administered on 11/21/18at 08:08; Admin Dose 81 MG; Start 11/21/18 at 09:00 Enoxaparin Sodium (Lovenox) 40 mg DAILY SC Last administered on 11/21/18at 08:15; Admin Dose 40 MG; Start 11/21/18 at 09:00 Atorvastatin Calcium (Lipitor) 40 mg QHS PO Last administered on 11/20/18at 20:34; Admin Dose 40 MG; Start 11/20/18 at 21:00 Levothyroxine Sodium (Synthroid) 50 mcg BEFORE BREAKFAST PO Last administered on 11/21/18 08:07; Admin Dose 50 MCG; Start 11/21/18 at 07:00 Loratadine (Claritin) 10 mg DAILY PO Last administered on 11/21/18 08:07; Admin Dose 10 MG; Start 11/21/18 at 09:00 Insulin Glargine (Lantus) 10 units DAILY@2000 SC Last administered on 11/20/18at 20:05; Admin Dose 10 UNITS; Start 11/20/18 at 20:00 Insulin Aspart (Novolog Insulin Pen) 3 unit WITH MEALS SC Last administered on 11/21/18 08:15; Admin Dose 3 UNIT; Start 11/20/18 at 18:00 Insulin Aspart (Novolog Insulin Pen) NOVOLOG *MILD* ALGORITHM WITH MEALS BEDTIME SC Last administered on 11/21/18 08:15; Admin Dose 3 UNIT; Start 11/20/18 at 18:00 Hydralazine HCl (Apresoline) 10 mg Q6H PRN IV SBP>180 Last administered on 11/21/18 08:08; Admin Dose 10 MG; Start 11/20/18 at 15:30 Miscellaneous Information 1 ea NOTE XX ; Start 11/20/18 at 16:00 Glucose (Glutose) 15 gm Q15M PRN PO DECREASED GLUCOSE; Start 11/20/18 at 16:00 Glucose (Glutose) 22.5 gm Q15M PRN PO DECREASED GLUCOSE; Start 11/20/18 at 16:00 Dextrose (D50w Syringe) 25 ml Q15M PRN IV DECREASED GLUCOSE; Start 11/20/18 at 16:00 Dextrose (D50w Syringe) 50 ml Q15M PRN IV DECREASED GLUCOSE; Start 11/20/18 at 16:00 Glucagon (Glucagen) 1 mg Q15M PRN IM DECREASED GLUCOSE; Start 11/20/18 at 16:00 Glucose (Glutose) 15 gm Q15M PRN BUCCAL DECREASED GLUCOSE; Start 11/20/18 at 16:00 Losartan Potassium (Cozaar) 25 mg BID PO Last administered on 5/26/19at 08:08; Admin Dose 25 MG; Start 11/20/18 at 21:00 Acetaminophen (Tylenol Tab) 500 mg Q6H PRN PO MILD PAIN(1-3)OR ELEVATED TEMP; Start 11/21/18 at 11:00 YISEL ASHBY NP November 21, 2018 11:07
--- NOTE | 2018-11-21 11:09 | CONS ---
Assessment/Plan Assessment/Plan Hospital Course 68 yo F with multiple cerebrovascular risk factors who presents for evaluation of altered mental status. The clinical picture raises concern for an acute encephalopathy. An acute cerebrovascular process (TIA) is, though, not yet excluded. MRI brain is reassuringly negative for focal ischemia. MRA H/N is most notable for severe basilar artery stenosis. LDL 47 P: Agree with ASA for secondary stroke prevention; LDL is at goal Await echo. Add CUS Add B12, ammonia, urine culture, blood cultures to exclude reversible causes of encephalopathy Cont medical management per primary Reorient as necessary Limit sedating medications where possible PT/OT as necessary Will follow clinically, to recommend neurologic studies, as necessary Consultation Date/Type/Reason Admit Date/Time Type of Consult Neurology Reason for Consultation ams Requesting Provider: YISEL ASHBY NP Date/Time of Note DATE: 11/21/18 TIME: 11:09 Hx of Present Illness 68 yo F with hx of CVA, HTN, DM, HLD, and other comorbidities who presented to the ED with complaints of ams and gait instability. History was obtained from pt, family and chart review. The pt stated that yesterday she was very confused, but now feels fine. She is unable to recall the details surrounding her episode of confusion other than that is why she came to the hospital. She currentyl denies headache, weakness, dizziness, lethargy, confusion, changes in speech or vision, paresthesias, gait instability, recent illness. She was noted to have elevated BP in the ED. It is additionally elsewhere noted: Hx of Present Illness This is a 68-year-old female with past medical history of stroke, hypertension, diabetes mellitus type 2, dyslipidemia, and hypothyroidism. Patient came to the emergency room with the changes in mental status. The patient's family indicated that the patient has been more confused and unsteady in her gait for the past 48 hours. The patient has been complaining of a headache as well as vertigo. The patient denied any chest pain. The patient was very tearful. The patient denied any changes in vision. She denied any dyspnea. In the emergency room, the patient's lab works were essentially negative. The patient's EKG was showing normal sinus rhythm. The patient underwent a CT scan of the brain that was negative for any acute findings. However, this showed evidence of chronic right patterson radiata/basal ganglia lacunar infarction. The patient was noted to have a blood pressure of 218/98. negative unless noted otherwise in HPI Exam/Review of Systems Exam Vitals Vital Signs Date Temp Pulse Resp B/P (MAP) Pulse Ox O2 O2 Flow FiO2 Time Delivery Rate 11/21/18 98.5 146/63 09:30 (90) 11/21/18 88 08:12 11/21/18 20 95 07:21 11/20/18 Room Air 17:34 11/20/18 2.0 15:52 Exam PE: Gen Appearance: No Apparent Distress HEENT: Normocephalic Cardiovascular: Regular rate Lungs: Clear bilaterally Abdomen: Soft Extremities: Dry NE: The patient was alert and fully oriented. Language was normal. Fund of knowledge was normal. Pupils were equal and reactive to light. There was no afferent pupillary defect. Visual colbert were normal. Funduscopic examination was limited. Extra-ocular movements were full. Ptosis was absent. There was no nystagmus. Facial sensation was normal. Face was symmetric with normal strength. Hearing was intact. Palate movements were normal. Neck strength was normal. There was normal tongue bulk and speed of movement. Tone was normal. Muscle bulk was normal. I did not see fasciculations. Arms and legs were strong to confrontation. Vibration sensation was normal. Temperature and pinprick sensation was normal. Rapid alternating movements were normal. There was no dysmetria. There was no in tention tremor. Gait was deferred due to bedrest. Arm and leg reflexes were 2+ and symmetric. Uriarte's sign was absent. Plantar responses were flexor. Results Result Diagram: 11/21/18 0528 11/21/18 0528 Results 24hrs Laboratory Tests Test 11/20/18 18:37 11/20/18 19:48 11/21/18 05:28 11/21/18 08:06 Bedside Glucose 253 H 225 H 226 H White Blood Count 14.8 #H Red Blood Count 5.01 Hemoglobin 13.7 Hematocrit 43.1 Mean Corpuscular 86.0 Volume Mean Corpuscular 27.3 L Hemoglobin Mean Corpuscular 31.8 L Hemoglobin Concent Red Cell 13.4 Distribution Width Platelet Count 238 Mean Platelet Volume 12.3 H Immature 0.500 H Granulocytes % Neutrophils % 66.2 Lymphocytes % 13.7 L Monocytes % 5.5 Eosinophils % 13.2 H Basophils % 0.9 Nucleated Red Blood 0.0 Cells % Immature 0.070 H Granulocytes # Neutrophils # 9.8 H Lymphocytes # 2.0 Monocytes # 0.8 Eosinophils # 2.0 H Basophils # 0.1 Nucleated Red Blood 0.0 Cells # Sodium Level 141 Potassium Level 3.9 Chloride Level 104 Carbon Dioxide Level 30 Anion Gap 7 Blood Urea Nitrogen 16 Creatinine 0.50 Est Glomerular > 60 Filtrat Rate mL/min Glucose Level 211 Calcium Level 9.1 Phosphorus Level 3.3 Magnesium Level 2.0 Total Bilirubin 0.5 Direct Bilirubin 0.00 Indirect Bilirubin 0.5 Aspartate Amino 29 Transf (AST/SGOT) Alanine 26 Aminotransferase (AL T/SGPT) Alkaline Phosphatase 90 Total Protein 7.3 Albumin 4.2 Globulin 3.10 Albumin/Globulin 1.35 Ratio Triglycerides Level 115 Cholesterol Level 122 LDL Cholesterol, 47 Calculated HDL Cholesterol 52 Cholesterol/HDL 2.3 Ratio Medications Medication Current Medications IV Flush (NS 3 ml) 3 ml PER PROTOCOL IV ; Start 11/20/18 at 15:30 Ondansetron HCl (Zofran Inj) 4 mg Q6H PRN IV NAUSEA/VOMITING; Start 11/20/18 at 15:30 Aspirin (Aspirin) 81 mg DAILY PO Last administered on 11/21/18 08:08; Admin Dose 81 MG; Start 11/21/18 at 09:00 Enoxaparin Sodium (Lovenox) 40 mg DAILY SC Last administered on 11/21/18 08:15; Admin Dose 40 MG; Start 11/21/18 at 09:00 Atorvastatin Calcium (Lipitor) 40 mg QHS PO Last administered on 11/20/18at 20:34; Admin Dose 40 MG; Start 11/20/18 at 21:00 Levothyroxine Sodium (Synthroid) 50 mcg BEFORE BREAKFAST PO Last administered on 11/21/18 08:07; Admin Dose 50 MCG; Start 11/21/18 at 07:00 Loratadine (Claritin) 10 mg DAILY PO Last administered on 11/21/18 08:07; Admin Dose 10 MG; Start 11/21/18 at 09:00 Insulin Glargine (Lantus) 10 units DAILY@2000 SC Last administered on 11/20/18at 20:05; Admin Dose 10 UNITS; Start 11/20/18 at 20:00 Insulin Aspart (Novolog Insulin Pen) 3 unit WITH MEALS SC Last administered on 11/21/18at 08:15; Admin Dose 3 UNIT; Start 11/20/18 at 18:00 Insulin Aspart (Novolog Insulin Pen) NOVOLOG *MILD* ALGORITHM WITH MEALS BEDTIME SC Last administered on 11/21/18at 08:15; Admin Dose 3 UNIT; Start 11/20/18 at 18:00 Hydralazine HCl (Apresoline) 10 mg Q6H PRN IV SBP>180 Last administered on 11/21/18at 08:08; Admin Dose 10 MG; Start 11/20/18 at 15:30 Miscellaneous Information 1 ea NOTE XX ; Start 11/20/18 at 16:00 Glucose (Glutose) 15 gm Q15M PRN PO DECREASED GLUCOSE; Start 11/20/18 at 16:00 Glucose (Glutose) 22.5 gm Q15M PRN PO DECREASED GLUCOSE; Start 11/20/18 at 16:00 Dextrose (D50w Syringe) 25 ml Q15M PRN IV DECREASED GLUCOSE; Start 11/20/18 at 16:00 Dextrose (D50w Syringe) 50 ml Q15M PRN IV DECREASED GLUCOSE; Start 11/20/18 at 16:00 Glucagon (Glucagen) 1 mg Q15M PRN IM DECREASED GLUCOSE; Start 11/20/18 at 16:00 Glucose (Glutose) 15 gm Q15M PRN BUCCAL DECREASED GLUCOSE; Start 11/20/18 at 16:00 Losartan Potassium (Cozaar) 25 mg BID PO Last administered on 11/21/18at 08:08; Admin Dose 25 MG; Start 11/20/18 at 21:00 Acetaminophen (Tylenol Tab) 500 mg Q6H PRN PO MILD PAIN(1-3)OR ELEVATED TEMP; Start 11/21/18 at 11:00 Past Medical History reviewed Home Meds Reported Medications Naproxen* (Naproxen*) 500 Mg Tablet, 500 MG PO BID PRN for PAIN AND/OR INFLAMMATION, TAB 11/20/18 Sitagliptin Phos/Metformin HCl (Janumet 50-1,000 mg Tablet) 1 Each Tablet, 1 EACH PO BID, TAB 11/20/18 Atorvastatin* (Atorvastatin*) 40 Mg Tablet, 40 MG PO QHS, #30 TAB 11/20/18 Loratadine* (Loratadine*) 10 Mg Tablet, 10 MG PO DAILY, #30 TAB 11/20/18 Omeprazole* (Omeprazole*) 40 Mg Capsule.dr, 40 MG PO DAILY, #30 CAP 11/20/18 Levothyroxine Sodium* (Levoxyl*) 50 Mcg Tablet, 50 MCG PO BEFORE BREAKFAST, #30 TAB 11/20/18 Aspirin (Low Dose Aspirin) 81 Mg Tablet.dr, 81 MG PO DAILY, #30 TAB 11/20/18 Discontinued Reported Medications Sitagliptin* (Januvia*) 100 Mg Tablet, 100 MG PO DAILY, #30 TAB 06/30/17 Metformin Hcl* (Metformin Hcl*) 1,000 Mg Tablet, 1000 MG PO WITH BREAKFAST DINNE, #30 TAB 06/30/17 Levothyroxine Sodium* (Levoxyl*) 75 Mcg Tablet, 75 MCG PO BEFORE BREAKFAST, #30 TAB 06/30/17 Aspirin (Low Dose Aspirin) 81 Mg Tablet.dr, 81 MG PO DAILY, #30 TAB 06/30/17 Amlodipine Besylate* (Amlodipine Besylate*) 10 Mg Tablet, 10 MG PO DAILY, #30 TAB 06/30/17 Carvedilol* (Carvedilol*) 12.5 Mg Tablet, 12.5 MG PO BID, #60 TAB 06/30/17 Cholecalciferol (Vitamin D3) 5,000 Unit Tablet, 5000 UNIT PO DAILY, TAB 06/30/17 Sitagliptin* (Januvia*) 100 Mg Tablet, 100 MG PO DAILY, #30 TAB 07/30/16 Metformin Hcl* (Metformin Hcl*) 1,000 Mg Tablet, 1000 MG PO WITH BREAKFAST DINNE, #30 TAB 07/30/16 Carvedilol* (Carvedilol*) 6.25 Mg Tablet, 6.25 MG PO BID, #60 TAB 07/30/16 Hydrochlorothiazide* (Hydrochlorothiazide*) 50 Mg Tab, 50 MG PO DAILY, #30 TAB 07/30/16 Valsartan* (Diovan*) 160 Mg Tablet, 160 MG PO BID, TAB 07/30/16 Amlodipine Besylate* (Amlodipine Besylate*) 10 Mg Tablet, 10 MG PO DAILY, #30 TAB 07/30/16 Medications Current Medications IV Flush (NS 3 ml) 3 ml PER PROTOCOL IV ; Start 11/20/18 at 15:30 Ondansetron HCl (Zofran Inj) 4 mg Q6H PRN IV NAUSEA/VOMITING; Start 11/20/18 at 15:30 Aspirin (Aspirin) 81 mg DAILY PO Last administered on 11/21/18 08:08; Admin Dose 81 MG; Start 11/21/18 at 09:00 Enoxaparin Sodium (Lovenox) 40 mg DAILY SC Last administered on 11/21/18 08:15; Admin Dose 40 MG; Start 11/21/18 at 09:00 Atorvastatin Calcium (Lipitor) 40 mg QHS PO Last administered on 11/20/18 20:34; Admin Dose 40 MG; Start 11/20/18 at 21:00 Levothyroxine Sodium (Synthroid) 50 mcg BEFORE BREAKFAST PO Last administered on 11/21/18 08:07; Admin Dose 50 MCG; Start 11/21/18 at 07:00 Loratadine (Claritin) 10 mg DAILY PO Last administered on 11/21/18 08:07; Admin Dose 10 MG; Start 11/21/18 at 09:00 Insulin Glargine (Lantus) 10 units DAILY@2000 SC Last administered on 11/20/18 20:05; Admin Dose 10 UNITS; Start 11/20/18 at 20:00 Insulin Aspart (Novolog Insulin Pen) 3 unit WITH MEALS SC Last administered on 11/21/18 08:15; Admin Dose 3 UNIT; Start 11/20/18 at 18:00 Insulin Aspart (Novolog Insulin Pen) NOVOLOG *MILD* ALGORITHM WITH MEALS BEDTIME SC Last administered on 11/21/18 08:15; Admin Dose 3 UNIT; Start 11/20/18 at 18:00 Hydralazine HCl (Apresoline) 10 mg Q6H PRN IV SBP>180 Last administered on 11/21/18 08:08; Admin Dose 10 MG; Start 11/20/18 at 15:30 Miscellaneous Information 1 ea NOTE XX ; Start 11/20/18 at 16:00 Glucose (Glutose) 15 gm Q15M PRN PO DECREASED GLUCOSE; Start 11/20/18 at 16:00 Glucose (Glutose) 22.5 gm Q15M PRN PO DECREASED GLUCOSE; Start 11/20/18 at 16:00 Dextrose (D50w Syringe) 25 ml Q15M PRN IV DECREASED GLUCOSE; Start 11/20/18 at 16:00 Dextrose (D50w Syringe) 50 ml Q15M PRN IV DECREASED GLUCOSE; Start 11/20/18 at 16:00 Glucagon (Glucagen) 1 mg Q15M PRN IM DECREASED GLUCOSE; Start 11/20/18 at 16:00 Glucose (Glutose) 15 gm Q15M PRN BUCCAL DECREASED GLUCOSE; Start 11/20/18 at 16:00 Losartan Potassium (Cozaar) 25 mg BID PO Last administered on 11/21/18at 08:08; Admin Dose 25 MG; Start 11/20/18 at 21:00 Acetaminophen (Tylenol Tab) 500 mg Q6H PRN PO MILD PAIN(1-3)OR ELEVATED TEMP; Start 11/21/18 at 11:00 Allergies: Coded Allergies: No Known Allergy (Unverified , 11/20/18) Past Surgical History reviewed Past Surgical Hx: other (Total vaginal hysterectomy, Cataract surgery.) Social History reviewed Alcohol Use: none Smoking Status: Never smoker Drug Use: none RIVERA DONIS NP November 21, 2018 11:09
[2018-11-21] MEDS ORDERED: LOSARTAN 25 MG TAB PO ONE (11:30)
[2018-11-21] MEDS: INSULIN GLARGINE [LANTus] (100 UNITS/ML) SYG SC SCH (19:57)
[2018-11-21] MEDS: LOSARTAN 50 MG TAB PO SCH (20:18)
[2018-11-21] MEDS: ATORVASTATIN 40 MG TAB PO SCH (20:18)
[2018-11-22] VITALS (12 sets, daily range): BP systolic 138–193; BP diastolic 60–82; PULSE 64–100; RESP 17–20
[2018-11-22] MEDS: LEVOTHYROXINE 50 MCG TAB PO SCH (08:05)
[2018-11-22] MEDS: ASPIRIN 81 MG TAB PO SCH (08:05)
[2018-11-22] MEDS: LOSARTAN 50 MG TAB PO SCH (08:05)
[2018-11-22] MEDS: LORATADINE 10 MG TAB PO SCH (08:05)
[2018-11-22] MEDS: ENOXAPARIN 40 MG/0.4 ML SYG SC SCH (08:06)
[2018-11-22] MEDS: INSULIN ASPART [NOVOLOG] 3 ML PEN SC SCH ×4 (08:07→11:36)
--- NOTE | 2018-11-22 10:19 | CONS ---
Assessment/Plan Assessment/Plan Hospital Course 68 yo F with multiple cerebrovascular risk factors who presents for evaluation of altered mental status. The clinical picture could be consistent w/ TIA. Seizure is less likely. Complex migraine is unlikely. MRI brain is reassuringly negative for focal ischemia. MRA H/N is most notable for severe basilar artery stenosis. CUS is notable only for mild BL carotid stenosis. LDL 47 P: Agree with ASA for secondary stroke prevention; LDL is at goal Await echo Reorient as necessary Limit sedating medications where possible PT/OT as necessary Will follow clinically Consultation Date/Type/Reason Admit Date/Time November 20, 2018 at 14:07 Type of Consult Neurology Reason for Consultation ams Requesting Provider: YISEL ASHBY NP Date/Time of Note DATE: 11/22/18 TIME: 10:19 24 HR Interval Summary Free Text/Dictation Continues acute care. S/p CUS Exam Vital Signs Vitals Vital Signs Date Temp Pulse Resp B/P (MAP) Pulse Ox O2 O2 Flow FiO2 Time Delivery Rate 11/22/18 64 08:21 11/22/18 98.2 18 144/67 96 Room Air 07:22 (92) 11/20/18 2.0 15:52 Intake and Output 11/21/18 11/21/18 11/22/18 1515:00 23:00 07:00 IntakeIntake Total 1230 ml BalanceBalance 1230 ml Exam PE: Gen Appearance: No Apparent Distress HEENT: Normocephalic Cardiovascular: Regular rate Lungs: Clear bilaterally Abdomen: Soft Extremities: Dry NE: The patient was alert and fully oriented. Language was normal. Fund of knowledge was normal. Pupils were equal and reactive to light. There was no afferent pupillary defect. Visual colbert were normal. Funduscopic examination was limited. Extra-ocular movements were full. Ptosis was absent. There was no nystagmus. Facial sensation was normal. Face was symmetric with normal strength. Hearing was intact. Palate movements were normal. Neck strength was normal. There was normal tongue bulk and speed of movement. Tone was normal. Muscle bulk was normal. I did not see fasciculations. Arms and legs were strong to confrontation. Vibration sensation was normal. Temperature and pinprick sensation was normal. Rapid alternating movements were normal. There was no dysmetria. There was no intention tremor. Gait was deferred due to bedrest. Arm and leg reflexes were 2+ and symmetric. Uriarte's sign was absent. Plantar responses were flexor. RIVERA DONIS NP November 22, 2018 10:19 ANDREIA PORTER November 23, 2018 07:39
[2018-11-22] MEDS ORDERED: LOSA50TA2 PO ×2 (10:36→10:45)
--- NOTE | 2018-11-22 10:44 | PDOCDIS ---
Discharge Instructions CONDITION [id number] Patient Condition: [id number] Stable HOME CARE INSTRUCTIONS: [id number] Diet Instructions: [id number] Low Fat /Cholesterol [id number] Special Diet: [id number] Low carbohydrate REFERRALS Other Referrals 1. Resume home medications. Start taking medications for blood pressure (losartan). 2. Take a low-cholesterol, low carbohydrate diet. 3. Resume activities as tolerated. 4. Follow-up with your primary care physician in 2 weeks. 5. Please go to the nearest emergency room if you have any chest pain, significant headache, or any other unusual signs/symptoms. YISEL ASHBY NP November 22, 2018 10:44
[2018-11-22] MEDS: hydrALAzine 20 MG INJ IV PRN (11:32)
--- NOTE | 2018-11-22 11:37 | DS ---
Date/Time of Note Date/Time of Note DATE: 11/22/18 TIME: 11:35 Discharge Summary Admission/Discharge Info Admit Date/Time November 20, 2018 at 14:07 Discharge Date/Time Discharge Diagnosis 1. Acute encephalopathy. Resolved. 2. Severe focal mid basilar artery stenosis: mild to moderate right cavernous carotid artery stenosis; mild right supraclinoid carotid artery stenosis. 3. Hypertensive emergency. 4. Cephalgia. 5. Diabetes mellitus type 2. Hemoglobin A1c 7.5. 6. Hypothyroidism. Patient Condition: Stable Consults Erendira Peña MD, Neurology. Procedures Brain CT IMPRESSION: 1. No acute intracranial hemorrhage or extra-axial fluid collection. 2. Minimal generalized cerebral volume loss. 3. Chronic right patterson radiata/basal ganglia lacunar infarction. Brain MRI IMPRESSION: 1. No acute infarction or intracranial hemorrhage. 2. Minimal generalized cerebral volume loss. 3. Mild chronic microvascular ischemic changes. 4. Chronic right patterson radiata/basal ganglia lacunar infarction. Brain MRA IMPRESSION: 1. Severe focal mid basilar artery stenosis. 2. Mild to moderate right cavernous carotid artery stenosis. 3. Mild right supraclinoid carotid artery stenosis. 4. No definite intracranial aneurysm. 2D Echocardiogram Conclusions: Normal left ventricular systolic function. Normal left ventricular cavity size. Mild concentric left ventricular hypertrophy. Ejection fraction is visually estimated at 60 %. Tissue Doppler/Mitral Doppler indices are consistent with impaired relaxation (Stage I diastolic dysfunction). Normal appearance of the mitral valve. Mild mitral valve regurgitation. Normal appearance of the tricuspid valve. The estimated Peak RVSP is 25 mmHg. There is trace tricuspid regurgitation. Hx of Present Illness This is a 68-year-old female with past medical history of stroke, hypertension, diabetes mellitus type 2, dyslipidemia, and hypothyroidism. Patient came to the emergency room with the changes in mental status. The patient's family indicated that the patient has been more confused and unsteady in her gait for the past 48 hours. The patient has been complaining of a headache as well as vertigo. The patient denied any chest pain. The patient was very tearful. The patient denied any changes in vision. She denied any dyspnea. In the emergency room, the patient's lab works were essentially negative. The patient's EKG was showing normal sinus rhythm. The patient underwent a CT scan of the brain that was negative for any acute findings. However, this showed evidence of chronic right patterson radiata/basal ganglia lacunar infarction. The patient was noted to have a blood pressure of 218/98. Hospital Course The patient was admitted to inpatient setting. The patient's presenting sym ptomatology was extensively evaluated. The patient's brain CT scan was negative for any acute findings. The patient's brain MRI was negative for any acute stroke. The patient's MRA showed severe focal mid basilar artery stenosis: mild to moderate right cavernous carotid artery stenosis; mild right supraclinoid carotid artery stenosis. The patient was evaluated by neurology and agreed on continuing the patient on aspirin and statins. Once the patient was ruled out for any underlying acute stroke, the patient's blood pressure was lowered gradually to obtain optimal control. The patient was complaining of cephalgia that was treated with analgesics. Etiology of the patient's cephalgia is unclear. The patient probably has underlying migraine syndrome or tension headache. The patient has underlying DM type II. The patient's hemoglobin A1c was 7.5. The patient was maintained on s liding scale insulin along with pre-meal insulin and basal hospital. The patient has underlying hypothyroidism. The patient was maintained on Synthroid for the same. The patient was evaluated by physical therapy and physical therapy recommended home health physical therapy upon discharge. The patient's symptomatology has almost completely resolved. Therefore, the patient will be discharged home, to be followed up with outpatient painter drum. Discharge Instructions 1. Resume home medications. Start taking medications for blood pressure (losartan). 2. Take a low-cholesterol, low carbohydrate diet. 3. Resume activities as tolerated. 4. Follow-up with your primary care physician in 2 weeks. 5. Please go to the nearest emergency room if you have any chest pain, significant headache, or any other unusual signs/symptoms. The patient's family verbalized understanding of the discharge instructions. At this time I would like to thank all the consultants for seeing the patient and providing clinical recommendations. The patient was seen in collaboration with Dr. Pedersen. Home Meds Active Scripts Losartan Potassium* (Cozaar*) 50 Mg Tablet, 50 MG PO BID, #60 TAB Prov:YISEL ASHBY PHILOSOPHY SPECIALIST 11/22/18 Reported Medications Sitagliptin Phos/Metformin HCl (Janumet 50-1,000 mg Tablet) 1 Each Tablet, 1 EACH PO BID, TAB 11/20/18 Atorvastatin* (Atorvastatin*) 40 Mg Tablet, 40 MG PO QHS, #30 TAB 11/20/18 Loratadine* (Loratadine*) 10 Mg Tablet, 10 MG PO DAILY, #30 TAB 11/20/18 Omeprazole* (Omeprazole*) 40 Mg Capsule.dr, 40 MG PO DAILY, #30 CAP 11/20/18 Levothyroxine Sodium* (Levoxyl*) 50 Mcg Tablet, 50 MCG PO BEFORE BREAKFAST, #30 TAB 11/20/18 Aspirin (Low Dose Aspirin) 81 Mg Tablet.dr, 81 MG PO DAILY, #30 TAB 11/20/18 Discontinued Reported Medications Naproxen* (Naproxen*) 500 Mg Tablet, 500 MG PO BID PRN for PAIN AND/OR INFLAMMATION, TAB 11/20/18 Sitagliptin* (Januvia*) 100 Mg Tablet, 100 MG PO DAILY, #30 TAB 06/30/17 Metformin Hcl* (Metformin Hcl*) 1,000 Mg Tablet, 1000 MG PO WITH BREAKFAST DINNE, #30 TAB 06/30/17 Levothyroxine Sodium* (Levoxyl*) 75 Mcg Tablet, 75 MCG PO BEFORE BREAKFAST, #30 TAB 06/30/17 Aspirin (Low Dose Aspirin) 81 Mg Tablet.dr, 81 MG PO DAILY, #30 TAB 06/30/17 Amlodipine Besylate* (Amlodipine Besylate*) 10 Mg Tablet, 10 MG PO DAILY, #30 TAB 06/30/17 Carvedilol* (Carvedilol*) 12.5 Mg Tablet, 12.5 MG PO BID, #60 TAB 06/30/17 Cholecalciferol (Vitamin D3) 5,000 Unit Tablet, 5000 UNIT PO DAILY, TAB 06/30/17 Sitagliptin* (Januvia*) 100 Mg Tablet, 100 MG PO DAILY, #30 TAB 07/30/16 Metformin Hcl* (Metformin Hcl*) 1,000 Mg Tablet, 1000 MG PO WITH BREAKFAST DINNE, #30 TAB 07/30/16 Carvedilol* (Carvedilol*) 6.25 Mg Tablet, 6.25 MG PO BID, #60 TAB 07/30/16 Hydrochlorothiazide* (Hydrochlorothiazide*) 50 Mg Tab, 50 MG PO DAILY, #30 TAB 07/30/16 Valsartan* (Diovan*) 160 Mg Tablet, 160 MG PO BID, TAB 07/30/16 Amlodipine Besylate* (Amlodipine Besylate*) 10 Mg Tablet, 10 MG PO DAILY, #30 TAB 07/30/16 Follow-up Plan To follow-up with PCP in 1-2 weeks. Primary Care Provider Yobani Stewart MD Pending Labs Laboratory Tests Test 11/21/18 11:40 11/21/18 11:51 11/21/18 11:52 11/21/18 16:50 Bedside 222 198 Glucose mg/dL (70-220) mg/dL (70-220) Ammonia < 9 umol/l (9-30) Vitamin B12 > 1000 Level pg/ml (239-931 ) Test 11/21/18 19:39 11/22/18 06:01 11/22/18 08:04 Bedside 158 170 Glucose mg/dL (70-220) mg/dL (70-220) White Blood 12.9 Count 10^3/ul (4.8-1 0.8) Red Blood 4.73 Count 10^6/ul (4.20- 5.40) Hemoglobin 13.2 g/dl (12.0-16. 0) Hematocrit 40.6 % (37.0-47.0) Mean 85.8 Corpuscular fl (82.0-101.0 Volume ) Mean 27.9 Corpuscular pg (29.0-33.0) Hemoglobin Mean 32.5 Corpuscular g/dl (32.0-37. Hemoglobin Conc 0) ent Red Cell 13.3 Distribution % (11.5-14.5) Width Platelet Count 231 10^3/UL (140-4 15) Mean Platelet 11.7 Volume fl (7.4-10.4) Immature 0.200 Granulocytes % % (0.001-0.429 ) Neutrophils % 39.5 % (39.0-77.0) Lymphocytes % 31.2 % (15.0-51.0) Monocytes % 7.8 % (0.0-11.0) Eosinophils % 20.0 % (0.0-7.0) Basophils % 1.3 % (0.0-2.0) Nucleated Red 0.0 Blood Cells % /100WBC (0.0-0 .0) Immature 0.020 Granulocytes # 10^3/ul (0.0-0 .031) Neutrophils # 5.1 10^3/ul (1.6-7 .5) Lymphocytes # 4.0 10^3/ul (0.8-2 .9) Monocytes # 1.0 10^3/ul (0.3-0 .9) Eosinophils # 2.6 10^3/ul (0.0-0 .5) Basophils # 0.2 10^3/ul (0.0-0 .1) Nucleated Red 0.0 Blood Cells # 10^3/ul (0.0-0 .0) Sodium Level 141 mmol/L (135-14 4) Potassium 3.8 Level mmol/L (3.5-5. 1) Chloride Level 106 mmol/L (97-110 ) Carbon Dioxide 27 Level mmol/L (21-31) Anion Gap 8 (5-13) Blood Urea 14 Nitrogen mg/dl (7-20) Creatinine 0.50 mg/dl (0.44-1. 00) Est Glomerular > 60 Filtrat mL/min (>60) Rate mL/min Glucose Level 183 mg/dl (70-220) Calcium Level 9.2 mg/dl (8.4-10. 2) Phosphorus 3.7 Level mg/dl (2.5-4.9 ) Magnesium 2.1 Level mg/dl (1.7-2.5 ) YISEL ASHBY NP November 22, 2018 11:36
[2018-11-22] MEDS ORDERED: hydrALAzine 20 MG INJ IV ONE (13:00)
--- NOTE | 2018-11-22 13:44 | RADRPT ---
Echocardiogram Report Patient Name: Louis KELLY ID: [id number] : 1950 (68y 1m)Study Date: 11/22/2018 8:33:50 AM Gender: FAccession #: [id number] Tech: JESSICA Location: [facility] Ref.Physician: YISEL ASHBY Height(Cm): BSA: Weight(Kg): Quality: GoodOrder Physician: YISEL ASHBY Account #: Procedures: Echocardiographic Report: Transthoracic echocardiogram with complete 2D, M-Mode, and doppler examination. Indications: Evaluate Left Ventricular function. Measurements: 2D/M Mode Doppler Measurement Value Normal Range Measurement Value Normal Range LVIDd 2D 4.3 [ 3.8 - 5.2 ] cm AV Mean Jonny 1.1 [ 70.0 - 90.0 ] cm/sec LVIDs 2D 3.0 [ 2.2 - 3.5 ] cm AV Mean PG 6.0 [ 2.0 - 4.0 ] mmHg LVPWd 2D 1.2 [ 0.6 - 0.9 ] cm AV Peak Jonny 1.6 [ 100.0 - 170.0 ] cm/sec IVSd 2D 1.2 [ 0.6 - 0.9 ] cm AV Peak PG 10.0 [ 2.0 - 9.0 ] mmHg EDV 2D 84.0 [ 46.0 - 106.0 ] ml AV VTI 28.5 cm ESV 2D 33.9 [ 14.0 - 42.0 ] ml LVOT Peak Jonny 1.1 [ 70.0 - 110.0 ] cm/sec EF 2D 59.6 [ 54.0 - 74.0 ] percent LVOT Peak PG 5.0 [ 2.0 - 6.0 ] mmHg LVOT Diam 1.9 [ 2.1 - 2.5 ] cm MV E Peak Jonny 0.7 [ 60.0 - 130.0 ] cm/sec MV A Peak Jonny 1.2 [ 100.0 - 120.0 ] cm/sec MV E/A 0.6 [ 0.8 - 1.5 ] ratio MV Decel Time 313 [ 104 - 258 ] msec Lat E` Jonny 0.1 [ 10.0 - 15.0 ] cm/sec Lateral E/E` 12.7 [ 1.0 - 2.0 ] ratio Med E` Jonny 0.0 cm/sec MV E/A 0.6 [ 0.8 - 1.5 ] ratio TR Peak Jonny 2.4 [ 100.0 - 280.0 ] cm/sec TR Peak PG 22.0 mmHg PV Peak Jonny 0.8 [ 40.0 - 80.0 ] cm/sec PV Peak PG 3.0 mmHg Findings: Left Ventricle: Normal left ventricular systolic function. Normal left ventricular cavity size. Mild concentric left ventricular hypertrophy. Ejection fraction is visually estimated at 60 %. Tissue Doppler/Mitral Doppler indices are consistent with impaired relaxation (Stage I diastolic dysfunction). Right Ventricle: Normal right ventricular size. Normal right ventricular systolic function. Left Atrium: The left atrium is normal in size. Right Atrium: The right atrium is normal in size. Mitral Valve: Normal appearance of the mitral valve. Mild mitral valve regurgitation. Aortic Valve: No hemodynamically significant aortic stenosis by doppler. Aortic sclerosis without significant stenosis. No aortic regurgitation. Tricuspid Valve: Normal appearance of the tricuspid valve. The estimated Peak RVSP is 25 mmHg. There is trace tricuspid regurgitation. Pulmonic Valve: Pulmonic valve not well visualized. Pericardium: Normal pericardium with no significant pericardial effusion. Aorta: Normal aortic root. IVC: Normal size and normal respiratory collapse consistent with normal right atrial pressure. Conclusions: Normal left ventricular systolic function. Normal left ventricular cavity size. Mild concentric left ventricular hypertrophy. Ejection fraction is visually estimated at 60 %. Tissue Doppler/Mitral Doppler indices are consistent with impaired relaxation (Stage I diastolic dysfunction). Normal appearance of the mitral valve. Mild mitral valve regurgitation. n. Normal appearance of the tricuspid valve. The estimated Peak RVSP is 25 mmHg. There is trace tricuspid regurgitation. Electronically Signed By: Damien Whitney 2018-11-22 13:43:20 PDT
== END 2018-11-22 17:25 | disposition home health service (06) | DRG 71 ==
LOC: E/R 09:52 → 6WM 14:07 → CANRESERV 17:03
PROVIDERS: ADMIT Hospitalist; ATTEND Hospitalist
DX: G93.40 Encephalopathy, unspecified (principal); I16.1 Hypertensive emergency; I10 Essential (primary) hypertension; E78.5 Hyperlipidemia, unspecified; E03.9 Hypothyroidism, unspecified; E11.9 Type 2 diabetes mellitus without complications; R51 Headache; I65.1 Occlusion and stenosis of basilar artery; I65.21 Occlusion and stenosis of right carotid artery; D72.829 Elevated white blood cell count, unspecified; Z86.73 Personal history of transient ischemic attack (TIA), and cerebral infarction without residual deficits
CPT/HCPCS: 70450; 70544; 70551; 71045; 80048; 80053; 80061; 80307; 81001; 82140; 82150; 82607; 82962; 83036; 83690; 83735; 84100; 84439; 84443; 84484; 85025; 85610; 85730; 87086; 93005; 93306; 93880; 96374; 96375; 97162; J0360; J1650; J1815; J2270; J2405

== ENCOUNTER 2018-12-09 06:12 | Day surgery (SDC) | payer OTHER ==
[2018-12-09] VITALS (8 sets, daily range): BP systolic 119–171; BP diastolic 59–80; PULSE 56–90; RESP 15–20; Ht 157.5 cm; Wt 67.8 kg
[~2018-12-09] VITALS: Ht 157.5 cm; Wt 67.8 kg
[~2018-12-09 06:12] MED LIST changes: -AMLO-147 PO; +ATOR40TA68 PO; -CARV12.579 PO; -CARV6.2579 PO; -CHOL500010 PO; -HYDR50TA3 PO; +LEVO50TA71 PO; -LEVO75TA65 PO; +LORA10TA3 PO; +LOSA50TA2 PO; -METF100010 PO; +OMEP40CA6 PO; -SITA100T11 PO; +SITA1TAB5 PO; -VALS160T20 PO
[2018-12-09] MEDS ORDERED: OMEPRAZOLE (07:37)
[2018-12-09] MEDS ORDERED: JANUVIA (07:37)
[2018-12-09] MEDS ORDERED: ASPIRIN (07:37)
[2018-12-09] MEDS ORDERED: METFORMIN (07:37)
[2018-12-09] MEDS ORDERED: LEVOTHYROXINE (07:37)
[2018-12-09] MEDS ORDERED: LOSARTAN (07:37)
[2018-12-09] MEDS ORDERED: LIDOCAINE 2% (SDV) 5 ML INJ ONE (07:44)
[2018-12-09] MEDS ORDERED: PROPOFOL 40 ML ONE (07:44)
--- NOTE | 2018-12-09 08:24 | PREAC ---
Date/Time of Note Date/Time of Note DATE: 12/09/18 TIME: 0720 Anesthesia Eval and Record Evaluation Time Pre-Procedure Interview DATE: 12/09/18 TIME: 08:21 Age 68 Sex female NPO: 8 hrs Preoperative diagnosis GERD Screeening Planned procedure EGD Colonoscopy Past Medical History Past Medical History: Includes Cardio: HTN Endo: Diabetes Surgery & Anesthesia Issues No known issue Meds Anticoagulation: No Beta Aury within 24 hr: No Reason Beta Aury not given: Other Active Scripts Losartan Potassium* (Cozaar*) 50 Mg Tablet, 50 MG PO BID, #60 TAB Prov:YISEL ASHBY [employer] PERSON 11/22/18 Reported Medications [Omeprazole] No Conflict Check 12/09/18 [Aspirin] No Conflict Check 12/09/18 [Levothyroxine] No Conflict Check 12/09/18 [Metformin] No Conflict Check 12/09/18 [Losartan] No Conflict Check 12/09/18 [Januvia] No Conflict Check 12/09/18 Sitagliptin Phos/Metformin HCl (Janumet 50-1,000 mg Tablet) 1 Each Tablet, 1 EACH PO BID, TAB 11/20/18 Atorvastatin* (Atorvastatin*) 40 Mg Tablet, 40 MG PO QHS, #30 TAB 11/20/18 Loratadine* (Loratadine*) 10 Mg Tablet, 10 MG PO DAILY, #30 TAB 11/20/18 Omeprazole* (Omeprazole*) 40 Mg Capsule.dr, 40 MG PO DAILY, #30 CAP 11/20/18 Levothyroxine Sodium* (Levoxyl*) 50 Mcg Tablet, 50 MCG PO BEFORE BREAKFAST, #30 TAB 11/20/18 Aspirin (Low Dose Aspirin) 81 Mg Tablet.dr, 81 MG PO DAILY, #30 TAB 11/20/18 Meds reviewed: Yes Allergies Coded Allergies: No Known Allergy (Unverified , 11/20/18) Allergies Reviewed: Yes Labs/Studies Labs Reviewed: Reviewed by anesthesiologist test: N/A Pre-procedure Exam Last vitals Vital Signs Date Temp Pulse Resp B/P (MAP) Pulse Ox O2 O2 Flow FiO2 Time Delivery Rate 12/09/18 98.0 90 20 168/80 100 Room Air 07:50 (109) Airway: Adequate mouth opening, Adequate thyromental dist Mallampati: Mallampati II Teeth: Normal Lung: Normal Heart: Normal ASA Physical Status ASA physical status: 3 Emergency: None Planned Anesthetic General/MAC: MAC Pre-operative Attestations Prior to commencing anesthesia and surgery, the patient was re-evaluated, there was verification of: *The patient's identity *The results of appropriate recent lab work and preoperative vital signs *The above evaluation not changing prior to induction *Anesthetic plan, risk benefits, alternative and complications discussed with patient/family; questions answered; patient/family understands, accepts and wishes to proceed. RENÉE KENNEY MD Dec 09, 2018 08:24
--- NOTE | 2018-12-09 08:25 | PAC ---
Date/Time of Note Date/Time of Note DATE: 12/09/18 TIME: 08:25 Post-Anesthesia Notes Post-Anesthesia Note Last documented vital signs Vital Signs Date Temp Pulse Resp B/P (MAP) Pulse Ox O2 O2 Flow FiO2 Time Delivery Rate 12/09/18 98.0 90 20 168/80 100 Room Air 07:50 (109) Activity: WNL Respiratory function: WNL Cardiovascular function: WNL Mental status: Baseline Pain reasonably controlled: Yes Hydration appropriate: Yes Nausea/Vomiting absent: Yes RENÉE KENNEY MD Dec 09, 2018 08:25
== END 2018-12-09 15:44 | disposition home or self-care (01) ==
LOC: GIL 06:12
PROVIDERS: ATTEND Internal Medicine Gastroenterology
DX: Z12.11 Encounter for screening for malignant neoplasm of colon (principal); D12.5 Benign neoplasm of sigmoid colon; K64.8 Other hemorrhoids; K57.90 Diverticulosis of intestine, part unspecified, without perforation or abscess without bleeding; K21.0 Gastro-esophageal reflux disease with esophagitis
CPT/HCPCS: 88305; 88312